=== PATIENT | female | born 1950 | race African-American/Black ===

== ENCOUNTER 2017-11-05 03:57 | Inpatient (IN) | payer MEDICARE, OTHER ==
[~2017-11-05] VITALS: Ht 177.8 cm; Wt 97.5 kg
[2017-11-05] VITALS (7 sets, daily range): BP systolic 115–155; BP diastolic 59–90
[2017-11-05] MEDS ORDERED: ATROVENT HFA12.9 GM IH (04:09)
[2017-11-05] MEDS ORDERED: ANASTROZOLE1 MG PO (04:11)
[2017-11-05] MEDS ORDERED: SYMBICORT 16010.2 G1 IH (04:12)
[2017-11-05] MEDS ORDERED: CARVEDILOL25 MG ORAL (04:12)
[2017-11-05] MEDS ORDERED: ASPIR 8181 MG ORAL (04:12)
[2017-11-05] MEDS ORDERED: COLACE100 MG ORAL (04:13)
[2017-11-05] MEDS ORDERED: CLOPIDOGREL75 MG ORAL (04:13)
[2017-11-05] MEDS ORDERED: CRANBERRY TABL1 EACH PO (04:14)
[2017-11-05] MEDS ORDERED: DULCOLAX10 MG RC (04:14)
[2017-11-05] MEDS ORDERED: FOLIC ACID1 MG ORAL (04:15)
[2017-11-05] MEDS ORDERED: FERROUS SULFAT325 MG ORAL (04:15)
[2017-11-05] MEDS ORDERED: FUROSEMIDE40 MG ORAL (04:15)
[2017-11-05] MEDS ORDERED: IMODIUM A-D2 M2 PO (04:16)
[2017-11-05] MEDS ORDERED: NEPHRO-VITE RX1 EAC1 PO (04:17)
[2017-11-05] MEDS ORDERED: LANTUS SOL100 UNIT/1 SUBQ (04:17)
[2017-11-05] MEDS ORDERED: MILK OF MA400 MG/51 ORAL (04:17)
[2017-11-05] MEDS ORDERED: CALCIUM ACETAT667 MG PO (04:19)
[2017-11-05] MEDS ORDERED: TRADJENTA5 MG PO (04:20)
[2017-11-05] MEDS ORDERED: ACETAMINOPHEN-1 EAC1 ORAL (04:21)
[2017-11-05] MEDS ORDERED: ACETAMINOPHEN325 M1 ORAL (04:21)
[2017-11-05] MEDS ORDERED: ULORIC80 MG ORAL (04:22)
[2017-11-05] MEDS ORDERED: VITAMIN D1000 UNI1 ORAL (04:22)
[2017-11-05] MEDS ORDERED: ZOFRAN4 M3 ORAL (04:23)
[2017-11-05] MEDS ORDERED: Albuterol ud Inhalation HHN ONE (04:30)
--- NOTE | 2017-11-05 04:31 | Emergency Room Report ---
History of Present Illness General Chief Complaint: Upper Respiratory Illness Source: Patient Present Illness HPI Patient was due for dialysis this morning she was getting ready when she started feeling extremely short of breath patient reports that she has been on antibiotics for the last week She has also had continued cough Patient complains of mild chest tightness denies any vomiting or diarrhea How she does have increased cough and congestion Patient is dialyzed Fridays denies any flank pain denies any recent travel Allergies: Uncoded Allergies: shell fish (Allergy, Intermediate, 11/05/17) Patient History Past Medical History: see triage record Pertinent Family History: none Reviewed Nursing Documentation: PMH: Agreed, PSxH: Agreed Nursing Documentation-PMH Hx Cardiac Problems: Yes Hx Hypertension: Yes Hx Asthma: Yes Hx COPD: Yes Hx Diabetes: Yes - 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 Hx Cancer: Yes Hx Gastrointestinal Problems: Yes - gerd Hx Dialysis: Yes - ESRD History Of Psychiatric Problem: Yes Review of Systems All Other Systems: negative except mentioned in HPI Physical Exam Vital Signs Date Time Temp Pulse Resp B/P (MAP) Pulse Ox O2 Delivery O2 Flow Rate FiO2 11/05/17 03:58 100 18 171/117 100 Nasal Cannula 3.0 Sp02 EP Interpretation: reviewed, normal General Appearance: mild distress - patient appears short of breath Head: normocephalic, atraumatic Eyes: bilateral eye PERRL, bilateral eye EOMI ENT: normal pharynx, no angioedema Neck: supple, thyroid normal Respiratory: crackles, wheezing Cardiovascular #1: regular rate, rhythm Gastrointestinal: non tender, soft Musculoskeletal: normal inspection Neurologic: alert, oriented x3, responsive Skin: other - mild edema laterally Medical Decision Making Diagnostic Impression: Primary Impression: Renal failure Additional Impression: Pleural effusion ER Course Patient is a fairly complex patient with multiple differential to consideration including but not limited to cardiac cardiopulmonary and vascular emergencies Upon arrival the patient was placed on BiPAP Patient has central dialysis catheter in the right upper chest AV shunt in left upper arm Difficult IV access At this time patient does not require other IV medication PICC line will be required to be ordered in the morning time However poor access other than dialysis catheter site X-ray revealing pleural effusion Patient has done significantly better and will require admission and nephrology along with dialysis care Labs Test 11/05/17 05:30 White Blood Count 3.8 K/UL (4.8-10.8) Red Blood Count 2.92 M/UL (4.20-5.40) Hemoglobin 9.2 G/DL (12.0-16.0) Hematocrit 29.6 % (37.0-47.0) Mean Corpuscular Volume 101 FL (80-99) Mean Corpuscular Hemoglobin 31.4 PG (27.0-31.0) Mean Corpuscular Hemoglobin Concent 30.9 G/DL (32.0-36.0) Red Cell Distribution Width 19.7 % (11.6-14.8) Platelet Count 162 K/UL (150-450) Mean Platelet Volume 5.5 FL (6.5-10.1) Neutrophils (%) (Auto) 83.9 % (45.0-75.0) Lymphocytes (%) (Auto) 6.2 % (20.0-45.0) Monocytes (%) (Auto) 6.9 % (1.0-10.0) Eosinophils (%) (Auto) 1.9 % (0.0-3.0) Basophils (%) (Auto) 1.0 % (0.0-2.0) Sodium Level 140 MMOL/L (136-145) Potassium Level 4.5 MMOL/L (3.5-5.1) Chloride Level 104 MMOL/L (98-107) Carbon Dioxide Level 27 MMOL/L (21-32) Anion Gap 10 mmol/L (5-15) Blood Urea Nitrogen 71 mg/dL (7-18) Creatinine 8.0 MG/DL (0.55-1.30) Estimat Glomerular Filtration Rate 6.1 mL/min (>60) Glucose Level 123 MG/DL (74-106) Calcium Level 9.2 MG/DL (8.5-10.1) Total Bilirubin 0.3 MG/DL (0.2-1.0) Aspartate Amino Transf (AST/SGOT) 14 U/L (15-37) Alanine Aminotransferase (ALT/SGPT) 20 U/L (12-78) Alkaline Phosphatase 89 U/L (46-116) Total Creatine Kinase 64 U/L (26-308) Creatine Kinase MB 2.1 NG/ML (0.0-3.6) Creatine Kinase MB Relative Index 3.2 Troponin I 0.058 ng/mL (0.000-0.056) Pro-B-Type Natriuretic Peptide 83328 pg/mL (0-125) Total Protein 7.5 G/DL (6.4-8.2) Albumin 3.1 G/DL (3.4-5.0) Globulin 4.4 g/dL Albumin/Globulin Ratio 0.7 (1.0-2.7) Lipase 95 U/L (73-393) Rhythm Strip Diag. Results EP Interpretation: yes Rate: 77 Rhythm: NSR, no PVC's, no ectopy Chest X-Ray Diagnostic Results Chest X-Ray Diagnostic Results : Chest X-Ray Ordered: Yes # of Views/Limited/Complete: 1 View Indication: Chest Pain EP Interpretation: Yes Interpretation: no pneumothorax, other - Patient has bilateral atelectasis appearance of, extensive left-sided effusion no obvious acute bony abnormalities Impression: Other - Large effusion Last Vital Signs Date Time Temp Pulse Resp B/P (MAP) Pulse Ox O2 Delivery O2 Flow Rate FiO2 11/05/17 03:58 100 18 171/117 100 Nasal Cannula 3.0 Status: improved Disposition: ADMITTED INPATIENT Condition: Serious Referrals: CHARLI STAPLETON (PCP) NESSA MESA D.O. Nov 05, 2017 04:30
[2017-11-05 05:37] LABS: EOSINOPHILS % (AUTO) 1.9 % (0.0-3.0); LYMPHOCYTES % (AUTO) 6.2 % (20.0-45.0); MEAN CORPUSCULAR HEMOGLOBIN 31.4 PG (27.0-31.0); MEAN CORPUSCULAR HGB CONC 30.9 G/DL (32.0-36.0); MEAN CORPUSCULAR VOLUME 101 FL (80-99); MEAN PLATELET VOLUME 5.5 FL (6.5-10.1); MONOCYTES % (AUTO) 6.9 % (1.0-10.0); NEUTROPHILS % (AUTO) 83.9 % (45.0-75.0); PLATELET COUNT 162 K/UL (150-450); RED BLOOD COUNT 2.92 M/UL (4.20-5.40); RED CELL DISTRIBUTION WIDTH 19.7 % (11.6-14.8); WHITE BLOOD COUNT 3.8 K/UL (4.8-10.8)
[2017-11-05 05:48] LABS: ANION GAP 10 mmol/L (5-15); CALCIUM 9.2 MG/DL (8.5-10.1); CARBON DIOXIDE 27 MMOL/L (21-32); CHLORIDE 104 MMOL/L (98-107); GLOMERULAR FILTRATION RATE 6.1 mL/min (>60); POTASSIUM 4.5 MMOL/L (3.5-5.1); SODIUM 140 MMOL/L (136-145)
[2017-11-05 06:20] LABS: ALANINE AMINOTRANSFERASE 20 U/L (12-78); ALBUMIN/GLOBULIN RATIO 0.7 (1.0-2.7); ASPARTATE AMINO TRANSFERASE 14 U/L (15-37); CKMB 2.1 NG/ML (0.0-3.6); LIPASE 95 U/L (73-393); TOTAL PROTEIN 7.5 G/DL (6.4-8.2)
[2017-11-05] MEDS ORDERED: Tylenol #3 tab (300mg/30mg) ORAL PRN (07:30)
[2017-11-05] MEDS ORDERED: Loperamide 2mg cap ORAL PRN (07:30)
[2017-11-05] MEDS: Milk of Magnesia 30ml Ud ORAL SCH (09:00)
[2017-11-05] MEDS: Docusate 100mg cap ORAL SCH (09:00)
[2017-11-05] MEDS ORDERED: cefTRIAXone 1 GM in D5W 55 ML IVPB SCH (09:00)
[2017-11-05] MEDS ORDERED: Aspirin EC 81mg tab ORAL SCH (09:00)
[2017-11-05] MEDS ORDERED: Heparin 5000 units/ml inj SUBQ SCH (09:00)
[2017-11-05] MEDS: Anastrazole 1mg tab ORAL SCH (10:00)
[2017-11-05] MEDS: Carvedilol 25mg Tab ORAL SCH ×2 (10:00→21:17)
[2017-11-05] MEDS ORDERED: Vancomycin 1750mg/D5W 300ml IVPB ONE ×2 (10:00)
[2017-11-05] MEDS: Vitamin D 1000 IU Tab ORAL SCH (10:01)
[2017-11-05] MEDS: NovoLOG Insulin Flexpen SUBQ SCH ×3 (11:30→21:00)
--- NOTE | 2017-11-05 11:37 | Diagnostic Imaging Report ---
Indication: Reason For Exam: SOB Technique: One view of the chest Comparison: none Findings: Right chest tunneled dialysis catheter is noted. There is a left chest automated defibrillator with a lead that is presumably an epicardial lead. There is a large left pleural effusion and a small right pleural effusion. There is mild interstitial congestion. The heart is borderline enlarged Impression: Borderline cardiomegaly Large left and small right pleural effusions Interstitial congestion
[2017-11-05] MEDS ORDERED: Heparin 2000 units/Ns 1000ml INJ PRN (13:00)
[2017-11-05] MEDS ORDERED: Lidocaine 1% Plain 30 ml INJ PRN (13:00)
[2017-11-05 15:24] LABS: PARTIAL THROMBOPLASTIN TIME 52 SEC (23-33)
[2017-11-05] MEDS ORDERED: Heparin Sod 1000 units/ml 10ml IV PRN (16:30)
[2017-11-05] MEDS ORDERED: Heparin 5000 units/ml inj INJ PRN (17:00)
--- NOTE | 2017-11-05 17:08 | Diagnostic Imaging Report ---
Indications: Pleural effusion Technique: Ultrasound used to localize optimal puncture site. Sterile prepping and draping left chest. Local anesthesia with 1% lidocaine. Under real-time ultrasound guidance, puncture pleural space using thoracentesis needle. Stylet removed. Catheter placed to vacuum bottle suction. Total 700 milliliters of fluid aspirated. Patient tolerated procedure well, without immediate complication. Findings: Followup sonography demonstrates complete resolution of pleural fluid. Impression: Successful ultrasound-guided thoracentesis, yielding 700 milliliters of fluid
--- NOTE | 2017-11-05 17:09 | Diagnostic Imaging Report ---
Indication: Post thoracentesis Technique: One view of the chest Comparison: 11/05/2017 Findings: Interim improvement of previously demonstrated left pleural effusion, post thoracentesis. No pneumothorax. Interstitial congestion, small right pleural effusion persists. Impression: Decreased left pleural effusion, status post thoracentesis. No radiographic evidence complication Other stable findings as described
[2017-11-05] MEDS: Lidocaine 1% MPF 10mg/ml 5ml IM SCH (17:54)
--- NOTE | 2017-11-05 18:45 | History and Physical Report ---
DATE OF ADMISSION: 11/05/2017 CHIEF COMPLAINT: Shortness of breath and respiratory failure. HISTORY OF PRESENT ILLNESS: The patient is a 66-year-old female. She has a history of end-stage renal disease. She has been on hemodialysis now for almost two years. She has a history of hypertension, diabetes, and congestive heart failure. She presented from a [facility] facility with complaints of worsening shortness of breath over the last three days. According to the patient, she has had worsening shortness of breath for a week or two. She denies any medication or dietary noncompliance. On the day of transfer here, the patient was hypoxic. On evaluation in the emergency room, the patient was placed on BiPAP because of hypoxemia and shortness of breath. X-ray showed evidence of congestive heart failure with a large effusion. The patient has been started on supplemental oxygen, antibiotics, and breathing treatments. She is now admitted for further evaluation and care. PAST MEDICAL HISTORY: As above. PAST SURGICAL HISTORY: Includes a history of an AV fistula. CURRENT MEDICATIONS: Reconciled and reviewed. ALLERGIES: Include shellfish. FAMILY HISTORY: Noncontributory. SOCIAL HISTORY: Negative for tobacco, ethanol, or drugs. REVIEW OF SYSTEMS: GENERAL: No fever or chills. HEENT: No headaches or visual changes. CARDIOPULMONARY: Positive shortness of breath. No chest pain. Mild nonproductive cough. GASTROINTESTINAL: No nausea or vomiting. GENITOURINARY: No urgency or frequency. MUSCULOSKELETAL: No joint pain or swelling. No evidence of seizures. PHYSICAL EXAMINATION: VITAL SIGNS: Temperature 98 degrees, blood pressure 115/90, pulse 95, and respirations 22. GENERAL: The patient is a well-developed female, in no apparent distress. She is awake, alert, and oriented x4. HEENT: Pupils are equal, round, and reactive to light. Oropharynx clear. Mucous membranes are moist. NECK: Supple. HEART: Regular rate and rhythm. LUNGS: Few scattered wheezes. ABDOMEN: Soft, nontender, and nondistended. EXTREMITIES: Without clubbing or cyanosis. There is 1+ pitting edema. LABORATORY DATA: White count was 4, hemoglobin 9, hematocrit 29, and platelet count of 162,000. Sodium is 140, creatinine was 8, potassium 4.5, and bicarbonate 27. Natriuretic peptide level was 10,000. Troponin 0.058. Chest x-ray showed cardiomegaly, large left and small right pleural effusions, and interstitial congestion. ASSESSMENT: This is a pleasant female with multiple medical problems admitted with complaints of shortness of breath secondary to congestive heart failure exacerbation. 1. Congestive heart failure exacerbation. 2. Possible pneumonia. 3. Pleural effusion. 4. Respiratory failure. 5. Diabetes. 6. Hypertension. 7. History of congestive heart failure. 8. Elevated troponin, rule out acute coronary syndrome. PLAN: 1. Admit to monitored bed. 2. Continue BiPAP. 3. Renal consultation for hemodialysis. 4. Empiric antibiotic therapy to cover for pneumonia. 5. Consider thoracentesis if shortness of breath does not improve with ultrafiltration. 6. We will continue the outpatient cardiac and diabetic regimen. Yosvany Gooden M.D. DR: LEONID JOB#: [id number] CC:
[2017-11-05 19:08] LABS: INR > 10.0 (0.9-1.1); PROTHROMBIN TIME > 100.0 SEC (9.30-11.50)
[2017-11-05] MEDS ORDERED: Dyna-Hex 2% Top Sol 2oz TOPIC SCH (20:00)
[2017-11-05] MEDS: Dyna-Hex 2% Top Sol 2oz TOPIC SCH (21:17)
[2017-11-05] MEDS: Epogen (for ESRD on dialysis) SUBQ SCH (21:18)
--- NOTE | 2017-11-05 22:00 | Consultation ---
DATE OF CONSULTATION: 11/05/2017 PULMONARY CONSULTATION REASON FOR CONSULTATION: Respiratory failure. HISTORY OF PRESENT ILLNESS: This is a 66-year-old female, who resides in a [facility] facility. The patient presented due to worsening shortness of breath. The patient apparently had been on antibiotics, but continued to cough with some congestion. The patient with mild chest tightness. The patient apparently gets dialyzed Wednesday, Wednesday, and Wednesday and has been compliant. She is admitted for increased cough, congestion, and respiratory distress. X-rays notable for bilateral pleural effusion, which is large on the left. The patient's care discussed and reviewed in detail and the patient initially placed on BiPAP as mentioned. The patient appeared to be doing well, now off the BiPAP, still with some congestion noted on evaluation. The patient's care discussed and reviewed and the findings were all discussed. The patient does have history of an overload and other events noted and reviewed. Evaluation of the medical records was done in detail. PAST MEDICAL HISTORY: Notable for history of end-stage renal disease, COPD, asthma, hypertension, history of cardiac disease, and history of gastrointestinal problems. MEDICATIONS: Reviewed. ALLERGIES: Reviewed. SOCIAL HISTORY: The patient resides in a [facility]. She does not smoke or drink. REVIEW OF SYSTEMS: All noted and reviewed. Difficult to fully assess. The patient has chronic edema, chronic debility, poor mobility overall, arthritis, and noted end-stage renal disease. PHYSICAL EXAMINATION: GENERAL: A well-developed female, appears to be mildly short of breath, although appears to be better now. VITAL SIGNS: Temperature 97, heart rate 85, respirations 22, blood pressure 126/77, and sats 98%. Currently, on 30% FiO2. HEENT: Otherwise negative. Sclerae mildly injected. Oropharynx is otherwise moist. NECK: Supple. No adenopathy. LUNGS: Lungs with significantly reduced breath sounds, especially in the left lung with some reduction in the right. CARDIAC: S1 and S2. Regular rate and rhythm. Slightly distant. Noted systolic murmur. ABDOMEN: Soft, nontender, and nondistended. EXTREMITIES: No cyanosis or clubbing. Noted edema. NEUROLOGICAL: Grossly nonfocal, but weak. LABORATORY AND DIAGNOSTIC DATA: All reviewed. BUN 31 and creatinine . Troponin 0.058. BNP 10,987. CBC, white count of 3.8, hemoglobin 9.2, and platelets of 162. IMPRESSION: 1. Pleural effusion bilaterally, likely fluid overload. 2. Chronic obstructive pulmonary disease/asthma per history. 3. End-stage renal disease. 4. History of hypertension. RECOMMENDATION: Proceed with thoracentesis tap. Resume medications from home. Nebulized therapy. Hemodialysis with ultrafiltration. Monitor platelets and recommend . Pending further improvement, we will discharge the patient back to [facility]. Ngerito Suarez M.D. DR: Brigette JOB#: [id number] CC:
[2017-11-06] VITALS: BP_SYST 123; BP_SYST 131; BP_DIAS 56; BP_DIAS 89
[2017-11-06] MEDS: Albuterol/Ipratropium 3ml neb HHN PRN ×3 (00:38→13:59)
[2017-11-06 04:00] VITALS: BP 101/60
[2017-11-06 05:18] LABS: INR 1.1 (0.9-1.1); PROTHROMBIN TIME 11.4 SEC (9.30-11.50)
[2017-11-06 05:24] LABS: CHOLESTEROL 134 MG/DL (< 200); CHOLESTEROL/HDL RATIO 2.2 (3.3-4.4)
[2017-11-06] MEDS: NovoLOG Insulin Flexpen SUBQ SCH ×4 (06:27→21:46)
[2017-11-06 08:00] VITALS: BP 103/61
[2017-11-06] MEDS: Vitamin D 1000 IU Tab ORAL SCH (08:58)
[2017-11-06] MEDS: Carvedilol 25mg Tab ORAL SCH ×2 (08:58→21:43)
[2017-11-06] MEDS: Milk of Magnesia 30ml Ud ORAL SCH (08:58)
[2017-11-06] MEDS: Anastrazole 1mg tab ORAL SCH (08:58)
[2017-11-06] MEDS: Docusate 100mg cap ORAL SCH (08:59)
--- NOTE | 2017-11-06 09:38 | General Progress Note ---
Assessment/Plan Problem List: (1) Pleural effusion ICD Codes: J90 - Pleural effusion, not elsewhere classified SNOMED: 60759871 (2) Renal failure ICD Codes: N19 - Unspecified kidney failure SNOMED: 00643205 Status: stable, progressing Assessment/Plan cont resp care bipap prn HD per renal cough rx dc planning wednesday if continued improvement Subjective ROS Limited/Unobtainable: No Constitutional: Reports: malaise, weakness HEENT: Reports: no symptoms Cardiovascular: Reports: no symptoms Respiratory: Reports: cough, shortness of breath Gastrointestinal/Abdominal: Reports: no symptoms Genitourinary: Reports: no symptoms Neurologic/Psychiatric: Reports: no symptoms Endocrine: Reports: no symptoms Hematologic/Lymphatic: Reports: no symptoms Allergies: Uncoded Allergies: shell fish (Allergy, Intermediate, 11/05/17) All Systems: reviewed and negative except above Subjective s/p hd. s/p 700cc thoracentesis. c/o cough, sob improved but still required bipap last night Objective Last 24 Hour Vital Signs Date Time Temp Pulse Resp B/P (MAP) Pulse Ox O2 Delivery O2 Flow Rate FiO2 11/06/17 08:58 87 103/61 11/06/17 08:00 98.5 87 20 103/61 95 Venturi Mask 40 11/06/17 06:56 Venturi Mask 8.0 40 11/06/17 06:56 96 Venturi Mask 8.0 40 11/06/17 06:56 84 22 Venturi Mask 8.0 40 11/06/17 05:48 Venturi Mask 8.0 40 11/06/17 05:46 81 18 97 Venturi Mask 8.0 40 11/06/17 05:40 81 18 96 Venturi Mask 4.0 30 11/06/17 04:00 82 11/06/17 04:00 98.6 83 20 101/60 99 Venturi Mask 11/06/17 04:00 40 11/06/17 02:51 Simple Mask 11/06/17 02:10 40 11/06/17 02:07 80 24 96 Facial 40 11/06/17 00:51 78 20 96 Venturi Mask 8.0 40 11/06/17 00:37 75 20 92 Venturi Mask 4.0 30 11/06/17 00:05 Nasal Cannula 2.0 11/06/17 00:00 80 11/06/17 00:00 98.9 79 20 123/56 99 Venturi Mask 11/05/17 21:17 89 117/72 11/05/17 20:00 98.6 89 20 117/72 98 Venturi Mask 30 11/05/17 19:46 97 11/05/17 16:00 79 11/05/17 16:00 98.1 89 22 129/59 100 Venturi Mask 30 11/05/17 12:32 82 11/05/17 12:00 97.8 85 22 126/77 98 Venturi Mask 30 11/05/17 10:00 99 155/90 Laboratory Tests 11/05/17 15:00: Prothrombin Time > 100.0H, Prothromb Time International Ratio > 10.0*H, Activated Partial Thromboplast Time 52H 11/06/17 03:45: Prothrombin Time 11.4, Prothromb Time International Ratio 1.1, Troponin I 0.073H , Triglycerides Level 45, Cholesterol Level 134, LDL Cholesterol 66, HDL Cholesterol 61H, Cholesterol/HDL Ratio 2.2L, Hepatitis A IgM Antibody [Pending] , Hepatitis B Surface Antigen [Pending], Hepatitis B Core IgM Antibody [Pending] , Hepatitis C Antibody [Pending] Height (Feet): 5 Height (Inches): 10.00 Weight (Pounds): 206 General Appearance: WD/WN, alert Neck: supple Cardiovascular: normal rate, regular rhythm Respiratory/Chest: chest wall non-tender, lungs clear, normal breath sounds Abdomen: normal bowel sounds, non tender, soft, no organomegaly Edema: mild edema 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
[2017-11-06] MEDS: Furosemide 40mg tab ORAL SCH ×2 (11:06→18:26)
[2017-11-06 12:00] VITALS: BP 105/61
[2017-11-06 16:00] VITALS: BP 122/69
[2017-11-06] MEDS: Lidocaine 1% MPF 10mg/ml 5ml IM SCH (18:27)
[2017-11-06] MEDS: Albuterol/Ipratropium 3ml neb HHN SCH ×2 (19:39→23:09)
[2017-11-06 20:00] VITALS: BP 108/60
--- NOTE | 2017-11-06 21:30 | Consultation ---
DATE OF CONSULTATION: 11/06/2017 RENAL CONSULTATION CONSULTING PHYSICIAN: Yani Mercedes M.D. REFERRING PHYSICIAN: Negrito Suarez M.D. REASON FOR CONSULTATION: ESRD, on hemodialysis. HISTORY OF PRESENT ILLNESS: This is a 66-year-old lady with a history of ESRD, on hemodialysis; hypertension; and diabetes. The patient was sent from the group home because of the respiratory failure and shortness of breath, and the patient is a poor historian and I could not get any detailed history. The patient is on the BiPAP, and the patient got dialysis yesterday with UF of 1.7, and the patient is still on a BiPAP, and the patient also had left-sided thoracocentesis yesterday with 700 mL of yellowish fluid was removed, and no fever and no nausea or vomiting. PAST MEDICAL HISTORY: 1. ESRD, on hemodialysis. 2. Anemia of CKD. 3. Hypertension. 4. Diabetes. 5. CHF. 6. History of CA of the breast. 7. GERD. 8. Major depression disorder. 9. Gout. 10. Ischemic cardiomyopathy with systolic and diastolic. ALLERGIES: Shellfish. MEDICATIONS: Reviewed. FAMILY HISTORY: Noncontributory. SOCIAL HISTORY: Resides in the group home. No current smoking, alcohol, or drug use. REVIEW OF SYSTEMS: Could not be obtained as the patient is on the BiPAP. PHYSICAL EXAMINATION: VITAL SIGNS: Blood pressure of 102/50 and a heart rate of 87, respiratory rate , and temperature is 98.5, and oxygen saturation is 95% on the BiPAP. GENERAL: On examination, the patient is on the BiPAP, alert and awake. HEENT: Atraumatic and normocephalic. NECK: Supple. Trachea is in the midline. LUNGS: Reduced breath sounds in the left chest. HEART: S1 and S2. Regular rate and rhythm. No murmur or gallop. ABDOMEN: Soft, nontender. Bowel sounds present. EXTREMITIES: No edema. Left AV fistula present. LABORATORY AND DIAGNOSTIC DATA: Sodium 140, potassium 4.5, chloride 104, bicarb 27, BUN 71, creatinine is 8.0, and calcium is 9.2. Troponin is 0.058, went up to 0.073 and her BNP is 10,000. Albumin is 3.1. Lipase is 85. The chest x-ray showed decreased left pleural effusion, status post thoracocentesis. ASSESSMENT: 1. End-stage renal disease, on hemodialysis. 2. Anemia of chronic kidney disease. 3. Left pleural effusion, status post thoracocentesis. 4. Hypertension. 5. Diabetes. 6. History of carcinoma of the breast. 7. Systolic and diastolic congestive heart failure. PLAN: 1. We are going to dialyze the patient again on Wednesday. 2. Start Epogen. 3. Respiratory care per Pulmonary. Thank you for the consultation and we will follow up. Yani Anuradha Mercedes M.D. DR: TAIWO JOB#: [id number] CC:
[2017-11-06] MEDS: Dyna-Hex 2% Top Sol 2oz TOPIC SCH (21:43)
[2017-11-06] MEDS: Heparin 5000 units/ml inj SUBQ SCH (21:45)
[2017-11-07] VITALS: BP 110/66
[2017-11-07] MEDS: Albuterol/Ipratropium 3ml neb HHN SCH ×6 (02:17→23:40)
[2017-11-07 04:00] VITALS: BP 115/86
[2017-11-07 04:41] LABS: MEAN CORPUSCULAR HEMOGLOBIN 32.6 PG (27.0-31.0); MEAN CORPUSCULAR HGB CONC 31.4 G/DL (32.0-36.0); MEAN CORPUSCULAR VOLUME 104 FL (80-99); MEAN PLATELET VOLUME 5.6 FL (6.5-10.1); PLATELET COUNT 135 K/UL (150-450); RED BLOOD COUNT 2.64 M/UL (4.20-5.40); RED CELL DISTRIBUTION WIDTH 19.9 % (11.6-14.8); WHITE BLOOD COUNT 2.9 K/UL (4.8-10.8)
[2017-11-07 05:07] LABS: IRON 24 ug/dL (50-175)
[2017-11-07 05:12] LABS: BAND NEUTROPHILS % (MANUAL) 0 % (0-8); BASOPHILS % (MANUAL) 0 % (0-2); EOSINOPHILS % (MANUAL) 3 % (0-3); LYMPHOCYTES % (MANUAL) 12 % (20-45); NEUTROPHILS % (MANUAL) 75 % (45-75); PLATELET ESTIMATE DECREASED; PLATELET MORPHOLOGY NORMAL; TOTAL CELLS COUNTED 100
[2017-11-07 05:16] LABS: ANION GAP 9 mmol/L (5-15); CALCIUM 8.7 MG/DL (8.5-10.1); CARBON DIOXIDE 26 MMOL/L (21-32); CHLORIDE 104 MMOL/L (98-107); CREATININE 8.2 MG/DL (0.55-1.30); FERRITIN 859 NG/ML (8-388); GLOMERULAR FILTRATION RATE 5.9 mL/min (>60); POTASSIUM 4.9 MMOL/L (3.5-5.1); SODIUM 139 MMOL/L (136-145)
[2017-11-07] MEDS: NovoLOG Insulin Flexpen SUBQ SCH ×4 (06:30→20:19)
[2017-11-07 08:00] VITALS: BP 113/63
[2017-11-07] MEDS: Heparin 5000 units/ml inj SUBQ SCH ×2 (09:00→20:24)
[2017-11-07] MEDS: Milk of Magnesia 30ml Ud ORAL SCH ×2 (09:00→09:27)
--- NOTE | 2017-11-07 09:09 | General Progress Note ---
Assessment/Plan Problem List: (1) Pleural effusion ICD Codes: J90 - Pleural effusion, not elsewhere classified SNOMED: 66345048 (2) Renal failure ICD Codes: N19 - Unspecified kidney failure SNOMED: 35605691 Status: stable, progressing Assessment/Plan cont resp care bipap prn wean venti mask check abg HD per renal cough rx dc planning wednesday if continued improvement Subjective ROS Limited/Unobtainable: No Constitutional: Reports: malaise, weakness HEENT: Reports: no symptoms Cardiovascular: Reports: no symptoms Respiratory: Reports: cough, shortness of breath Gastrointestinal/Abdominal: Reports: no symptoms Genitourinary: Reports: no symptoms Neurologic/Psychiatric: Reports: no symptoms Endocrine: Reports: no symptoms Hematologic/Lymphatic: Reports: anemia Allergies: Coded Allergies: SHELLFISH DERIVED (Unverified Allergy, Intermediate, 11/06/17) COPIED FROM UNCODED SECTION All Systems: reviewed and negative except above Subjective s/p hd. s/p 700cc thoracentesis. c/o cough, sob improved but still on venti mask. Objective Last 24 Hour Vital Signs Date Time Temp Pulse Resp B/P (MAP) Pulse Ox O2 Delivery O2 Flow Rate FiO2 11/07/17 08:57 96 20 99 Venturi Mask 10.0 45 11/07/17 08:53 96 20 99 Venturi Mask 10.0 45 11/07/17 07:41 92 20 100 Venturi Mask 10.0 45 11/07/17 07:34 91 20 99 Venturi Mask 10.0 45 11/07/17 07:34 99 Venturi Mask 10.0 45 11/07/17 07:34 Venturi Mask 10.0 45 11/07/17 04:00 98.0 88 22 115/86 99 Venturi Mask 40 11/07/17 03:37 81 11/07/17 02:18 98 20 96 Venturi Mask 8.0 40 11/07/17 02:17 93 20 94 Venturi Mask 8.0 40 11/07/17 00:00 94 11/07/17 00:00 98.9 84 22 110/66 100 Venturi Mask 40 11/06/17 23:11 94 20 98 Venturi Mask 8.0 40 11/06/17 23:09 88 20 95 Venturi Mask 8.0 40 11/06/17 21:43 83 108/60 11/06/17 20:00 97.7 83 22 108/60 95 Venturi Mask 40 11/06/17 19:42 Venturi Mask 6.0 35 11/06/17 19:42 82 20 99 Venturi Mask 6.0 35 11/06/17 19:42 93 11/06/17 19:41 97 Venturi Mask 6.0 35 11/06/17 19:39 90 20 97 Venturi Mask 6.0 35 11/06/17 16:00 98.3 98 16 122/69 100 Venturi Mask 40 11/06/17 16:00 75 11/06/17 14:10 83 22 96 Venturi Mask 8.0 40 11/06/17 13:59 82 24 98 Venturi Mask 8.0 40 11/06/17 12:12 88 20 95 Venturi Mask 8.0 40 11/06/17 12:12 88 20 95 Venturi Mask 8.0 40 11/06/17 12:00 99.3 85 20 105/61 98 Venturi Mask 40 11/06/17 12:00 98 Laboratory Tests 11/07/17 03:55: White Blood Count 2.9L, Red Blood Count 2.64L, Hemoglobin 8.6L, Hematocrit 27.4L , Mean Corpuscular Volume 104H, Mean Corpuscular Hemoglobin 32.6H, Mean Corpuscular Hemoglobin Concent 31.4L, Red Cell Distribution Width 19.9H, Platelet Count 135L, Mean Platelet Volume 5.6L, Neutrophils (%) (Auto) , Lymphocytes (%) (Auto) , Monocytes (%) (Auto) , Eosinophils (%) (Auto) , Basophils (%) (Auto) , Differential Total Cells Counted 100, Neutrophils % ( Manual) 75, Lymphocytes % (Manual) 12L, Monocytes % (Manual) 10, Eosinophils % ( Manual) 3, Basophils % (Manual) 0, Band Neutrophils 0, Platelet Estimate DecreasedL, Platelet Morphology Normal, Sodium Level 139, Potassium Level 4.9, Chloride Level 104, Carbon Dioxide Level 26, Anion Gap 9, Blood Urea Nitrogen 76H, Creatinine 8.2H, Estimat Glomerular Filtration Rate 5.9, Glucose Level 122H , Calcium Level 8.7, Iron Level 24L, Ferritin 859H Height (Feet): 5 Height (Inches): 10.00 Weight (Pounds): 204 Objective General Appearance: WD/WN, alert Neck: supple Cardiovascular: normal rate, regular rhythm Respiratory/Chest: chest wall non-tender, lungs clear, normal breath sounds Abdomen: normal bowel sounds, non tender, soft, no organomegaly Edema: mild edema 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
[2017-11-07] MEDS: Aspirin EC 81mg tab ORAL SCH (09:25)
[2017-11-07] MEDS: Furosemide 40mg tab ORAL SCH ×2 (09:25→17:52)
[2017-11-07] MEDS: Vitamin D 1000 IU Tab ORAL SCH (09:25)
[2017-11-07] MEDS: Docusate 100mg cap ORAL SCH (09:26)
[2017-11-07] MEDS: Carvedilol 25mg Tab ORAL SCH ×2 (09:27→20:21)
[2017-11-07] MEDS: Anastrazole 1mg tab ORAL SCH (09:28)
[2017-11-07 10:44] LABS: ABG ALLEN TEST POSITIVE; ABG BASE EXCESS -0.9; ABG PCO2 37.5 mmHg (35.0-45.0)
[2017-11-07 12:00] VITALS: BP 100/57
--- NOTE | 2017-11-07 13:07 | Cardiology Report ---
APPROVED REPORT EXAM: Two-dimensional and M-mode echocardiogram with Doppler and color Doppler. INDICATION Acute myocard infarction M-Mode DIMENSIONS IVSd1.7 (0.7-1.1cm)Left Atrium (MM)5.5 (1.6-4.0cm) LVDd5.3 (3.5-5.6cm)Aortic Root2.9 (2.0-3.7cm) PWd1.3 (0.7-1.1cm)Aortic Cusp Exc.1.5 (1.5-2.0cm) LVDs4.3 (2.5-4.0cm) PWs1.3 cm Technically difficult study due to poor acoustical windows. Study quality precludes accurate assessment of regional wall motion. Mild left ventricular enlargement by 2D. Global left ventricular hypokinesis. Left ventricular ejection fraction estimated to be 40%. Moderate left ventricular hypertrophy. Moderate pleural effusion. Mild left atrial enlargement. Right cardiac chamber sizes are within normal limits. Focal aortic valve sclerosis with adequate cusp excursion. Thickened mitral valve leaflets with normal excursion. Mitral annulus and aortic root calcification. Pulmonic valve not well visualized. Normal tricuspid valve structure. IVC dilated at 2.2 cm with physiologic collapse suggestive of increased RA pressure. A color flow and spectral Doppler study was performed and revealed: No aortic regurgitation. Moderate mitral regurgitation. Mitral diastolic velocities suggest mild left ventricular dysfunction (Grade I ). Trace tricuspid regurgitation. Tricuspid systolic velocities suggests peak right ventricular systolic pressure of 21 mmHg. Trace pulmonic regurgitation present.
--- NOTE | 2017-11-07 14:08 | Nephrology Progress Note ---
Assessment/Plan Plan 1. End-stage renal disease, on hemodialysis. 2. Anemia of chronic kidney disease. 3. Left pleural effusion, status post thoracocentesis. 4. Hypertension. 5. Diabetes. 6. History of carcinoma of the breast. 7. Systolic and diastolic congestive heart failure. PLAN: 1. HD tomorrow 2. continue EPogen chjeck iron, ferritin 3. Respiratory care per Pulmonary. Subjective Subjective mild SOb last nigth and SaO2 is ok. Denies any c/o Objective Objective Last 24 Hour Vital Signs Date Time Temp Pulse Resp B/P (MAP) Pulse Ox O2 Delivery O2 Flow Rate FiO2 11/07/17 12:00 97.5 91 18 100/57 97 Venturi Mask 40 11/07/17 12:00 97 11/07/17 11:14 91 20 93 Nasal Cannula 2.0 28 11/07/17 11:03 91 20 93 Nasal Cannula 2.0 28 11/07/17 09:27 96 115/86 11/07/17 08:57 96 20 99 Venturi Mask 10.0 45 11/07/17 08:53 96 20 99 Venturi Mask 10.0 45 11/07/17 08:00 93 11/07/17 08:00 98.1 98 18 113/63 99 Venturi Mask 40 11/07/17 07:41 92 20 100 Venturi Mask 10.0 45 11/07/17 07:34 91 20 99 Venturi Mask 10.0 45 11/07/17 07:34 99 Venturi Mask 10.0 45 11/07/17 07:34 Venturi Mask 10.0 45 11/07/17 04:00 98.0 88 22 115/86 99 Venturi Mask 40 11/07/17 03:37 81 11/07/17 02:18 98 20 96 Venturi Mask 8.0 40 11/07/17 02:17 93 20 94 Venturi Mask 8.0 40 11/07/17 00:00 94 11/07/17 00:00 98.9 84 22 110/66 100 Venturi Mask 40 11/06/17 23:11 94 20 98 Venturi Mask 8.0 40 11/06/17 23:09 88 20 95 Venturi Mask 8.0 40 11/06/17 21:43 83 108/60 11/06/17 20:00 97.7 83 22 108/60 95 Venturi Mask 40 11/06/17 19:42 Venturi Mask 6.0 35 11/06/17 19:42 82 20 99 Venturi Mask 6.0 35 11/06/17 19:42 93 11/06/17 19:41 97 Venturi Mask 6.0 35 11/06/17 19:39 90 20 97 Venturi Mask 6.0 35 11/06/17 16:00 98.3 98 16 122/69 100 Venturi Mask 40 11/06/17 16:00 75 11/06/17 14:10 83 22 96 Venturi Mask 8.0 40 Intake and Output 11/07/17 11/08/17 19:00 07:00 Intake Total 100 ml Balance 100 ml Intake Oral 100 ml # Bowel Movements 2 Laboratory Tests 11/07/17 03:55: White Blood Count 2.9L, Red Blood Count 2.64L, Hemoglobin 8.6L, Hematocrit 27.4L , Mean Corpuscular Volume 104H, Mean Corpuscular Hemoglobin 32.6H, Mean Corpuscular Hemoglobin Concent 31.4L, Red Cell Distribution Width 19.9H, Platelet Count 135L, Mean Platelet Volume 5.6L, Neutrophils (%) (Auto) , Lymphocytes (%) (Auto) , Monocytes (%) (Auto) , Eosinophils (%) (Auto) , Basophils (%) (Auto) , Differential Total Cells Counted 100, Neutrophils % ( Manual) 75, Lymphocytes % (Manual) 12L, Monocytes % (Manual) 10, Eosinophils % ( Manual) 3, Basophils % (Manual) 0, Band Neutrophils 0, Platelet Estimate DecreasedL, Platelet Morphology Normal, Sodium Level 139, Potassium Level 4.9, Chloride Level 104, Carbon Dioxide Level 26, Anion Gap 9, Blood Urea Nitrogen 76H, Creatinine 8.2H, Estimat Glomerular Filtration Rate 5.9, Glucose Level 122H , Calcium Level 8.7, Iron Level 24L, Ferritin 859H 11/07/17 10:30: Arterial Blood pH 7.410, Arterial Blood Partial Pressure CO2 37.5, Arterial Blood Partial Pressure O2 85.9, Arterial Blood HCO3 23.5, Arterial Blood Oxygen Saturation 95.7, Arterial Blood Base Excess -0.9, Truman Test Positive Height (Feet): 5 Height (Inches): 10.00 Weight (Pounds): 204 Objective NAD, AAOx3 mild bilat basilar crackles+ S1,S2,RRR soft, non tender, BS+ no edema, LAVF+ CEVALLOS,VILMA Nov 07, 2017 14:08
--- NOTE | 2017-11-07 14:12 | Cardiology Report ---
APPROVED REPORT EKG Measurement Heart [id number] Sinus rhythm with occasional premature ventricular complexes Rightward axis Anteroseptal infarct, age undetermined Abnormal ECG
[2017-11-07 14:37] LABS: IRON 26 ug/dL (50-175); TOTAL IRON BINDING CAPACITY 170 ug/dL (250-450)
--- NOTE | 2017-11-07 14:40 | Cardiology Report ---
APPROVED REPORT EKG Measurement Heart [id number] VA [id number] [id number] Normal sinus rhythm Anteroseptal infarct, age undetermined Abnormal ECG
[2017-11-07 14:50] LABS: FERRITIN 893 NG/ML (8-388)
[2017-11-07 16:00] VITALS: BP 109/68
[2017-11-07] MEDS ORDERED: Furosemide 80mg tab ORAL ONE (16:00)
[2017-11-07] MEDS: Lidocaine 1% MPF 10mg/ml 5ml IM SCH (17:51)
[2017-11-07] MEDS: Dyna-Hex 2% Top Sol 2oz TOPIC SCH (19:40)
[2017-11-07 20:00] VITALS: BP 127/65
[2017-11-08] VITALS: BP 125/64
[2017-11-08] MEDS ORDERED: Heparin Sod 1000 units/ml 10ml IV PRN
[2017-11-08] MEDS ORDERED: Heparin 2000 units/Ns 1000ml IV ONE
[2017-11-08] MEDS: Albuterol/Ipratropium 3ml neb HHN SCH ×5 (02:24→20:42)
[2017-11-08 04:00] VITALS: BP 127/65
[2017-11-08] MEDS: NovoLOG Insulin Flexpen SUBQ SCH ×4 (06:30→21:00)
[2017-11-08 08:00] VITALS: BP 92/55
[2017-11-08] MEDS: Docusate 100mg cap ORAL SCH (08:17)
[2017-11-08] MEDS: Anastrazole 1mg tab ORAL SCH (08:17)
[2017-11-08] MEDS: Vitamin D 1000 IU Tab ORAL SCH (08:19)
[2017-11-08] MEDS: Aspirin EC 81mg tab ORAL SCH (08:19)
[2017-11-08] MEDS: Furosemide 40mg tab ORAL SCH ×2 (08:19→17:19)
[2017-11-08] MEDS: Carvedilol 25mg Tab ORAL SCH ×2 (08:20→21:25)
[2017-11-08] MEDS: Heparin 5000 units/ml inj SUBQ SCH ×2 (08:20→21:00)
[2017-11-08] MEDS: Milk of Magnesia 30ml Ud ORAL SCH (08:20)
[2017-11-08] MEDS ORDERED: Cathflo Alteplase 2mg Inj INJ ONE (09:00)
[2017-11-08 12:00] VITALS: BP 117/65
--- NOTE | 2017-11-08 14:10 | General Progress Note ---
Assessment/Plan Problem List: (1) Pleural effusion ICD Codes: J90 - Pleural effusion, not elsewhere classified SNOMED: 45562162 (2) Renal failure ICD Codes: N19 - Unspecified kidney failure SNOMED: 01636447 Assessment/Plan cont resp care bipap prn wean venti mask check abg HD per renal cough rx Not ready for dc. try to wean venti mask Subjective ROS Limited/Unobtainable: No Constitutional: Reports: malaise, weakness HEENT: Reports: no symptoms Cardiovascular: Reports: no symptoms Respiratory: Reports: cough, shortness of breath Gastrointestinal/Abdominal: Reports: no symptoms Genitourinary: Reports: no symptoms Neurologic/Psychiatric: Reports: no symptoms Endocrine: Reports: no symptoms Hematologic/Lymphatic: Reports: anemia Allergies: Coded Allergies: SHELLFISH DERIVED (Unverified Allergy, Intermediate, 11/06/17) COPIED FROM UNCODED SECTION All Systems: reviewed and negative except above Subjective s/p hd. s/p 700cc thoracentesis. c/o cough, sob improved but still on venti mask. Objective Last 24 Hour Vital Signs Date Time Temp Pulse Resp B/P (MAP) Pulse Ox O2 Delivery O2 Flow Rate FiO2 11/08/17 10:29 78 18 100 Venturi Mask 10.0 45 11/08/17 10:27 78 20 100 Venturi Mask 10.0 45 11/08/17 10:25 76 18 100 Venturi Mask 6.0 35 11/08/17 10:19 76 18 99 Venturi Mask 6.0 35 11/08/17 08:20 98 Venturi Mask 6.0 35 11/08/17 08:20 86 125/64 11/08/17 08:18 86 20 98 Venturi Mask 6.0 35 11/08/17 08:17 86 20 98 Venturi Mask 6.0 35 11/08/17 08:16 Venturi Mask 6.0 35 11/08/17 08:00 92 11/08/17 08:00 97.5 73 18 92/55 100 Venturi Mask 40 11/08/17 04:00 80 11/08/17 02:34 72 20 100 Venturi Mask 6.0 40 11/08/17 02:24 79 18 99 Venturi Mask 6.0 35 11/08/17 00:00 91 11/08/17 00:00 98.1 74 24 125/64 98 Venturi Mask 11/07/17 23:50 79 20 100 Venturi Mask 6.0 40 11/07/17 23:40 82 18 97 Nasal Cannula 2.0 28 11/07/17 23:00 75 33 97 Facial 40 11/07/17 22:01 40 11/07/17 20:21 86 127/65 11/07/17 20:00 98.4 86 18 127/65 91 Nasal Cannula 2.0 11/07/17 20:00 84 11/07/17 19:49 85 20 100 Nasal Cannula 2.0 28 11/07/17 19:29 87 18 97 Nasal Cannula 2.0 28 11/07/17 19:28 97 Nasal Cannula 2.0 28 11/07/17 19:28 Nasal Cannula 2.0 28 11/07/17 16:00 95 11/07/17 16:00 98.2 85 18 109/68 91 Nasal Cannula 2.0 11/07/17 15:13 80 20 96 Nasal Cannula 2.0 28 11/07/17 15:03 83 20 92 Nasal Cannula 2.0 28 Laboratory Tests 11/08/17 04:40: Random Vancomycin Level < 2.0 Height (Feet): 5 Height (Inches): 10.00 Weight (Pounds): 206 Objective General Appearance: WD/WN, alert Neck: supple Cardiovascular: normal rate, regular rhythm Respiratory/Chest: chest wall non-tender, lungs clear, normal breath sounds Abdomen: normal bowel sounds, non tender, soft, no organomegaly Edema: mild edema 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
--- NOTE | 2017-11-08 15:32 | General Progress Note ---
Assessment/Plan Assessment/Plan Had HD now. Instilled tPA and after that a normal run. Subjective Allergies: Coded Allergies: SHELLFISH DERIVED (Unverified Allergy, Intermediate, 11/06/17) COPIED FROM UNCODED SECTION Subjective No new c/o. Objective Last 24 Hour Vital Signs Date Time Temp Pulse Resp B/P (MAP) Pulse Ox O2 Delivery O2 Flow Rate FiO2 11/08/17 15:13 79 20 100 Venturi Mask 6.0 35 11/08/17 15:04 94 20 98 Venturi Mask 6.0 35 11/08/17 12:00 97.5 82 18 117/65 99 Venturi Mask 40 11/08/17 10:29 78 18 100 Venturi Mask 10.0 45 11/08/17 10:27 78 20 100 Venturi Mask 10.0 45 11/08/17 10:25 76 18 100 Venturi Mask 6.0 35 11/08/17 10:19 76 18 99 Venturi Mask 6.0 35 11/08/17 08:20 98 Venturi Mask 6.0 35 11/08/17 08:20 86 125/64 11/08/17 08:18 86 20 98 Venturi Mask 6.0 35 11/08/17 08:17 86 20 98 Venturi Mask 6.0 35 11/08/17 08:16 Venturi Mask 6.0 35 11/08/17 08:00 92 11/08/17 08:00 97.5 73 18 92/55 100 Venturi Mask 40 11/08/17 04:00 80 11/08/17 02:34 72 20 100 Venturi Mask 6.0 40 11/08/17 02:24 79 18 99 Venturi Mask 6.0 35 11/08/17 00:00 91 11/08/17 00:00 98.1 74 24 125/64 98 Venturi Mask 11/07/17 23:50 79 20 100 Venturi Mask 6.0 40 11/07/17 23:40 82 18 97 Nasal Cannula 2.0 28 11/07/17 23:00 75 33 97 Facial 40 11/07/17 22:01 40 11/07/17 20:21 86 127/65 11/07/17 20:00 98.4 86 18 127/65 91 Nasal Cannula 2.0 11/07/17 20:00 84 11/07/17 19:49 85 20 100 Nasal Cannula 2.0 11/07/17 19:29 87 18 97 Nasal Cannula 2.0 28 11/07/17 19:28 97 Nasal Cannula 2.0 11/07/17 19:28 Nasal Cannula 2.0 11/07/17 16:00 95 11/07/17 16:00 98.2 85 18 109/68 91 Nasal Cannula 2.0 Laboratory Tests 11/08/17 04:40: Random Vancomycin Level < 2.0 Height (Feet): 5 Height (Inches): 10.00 Weight (Pounds): 206 Objective CV RR Lungs CTA Abd SNT . BS + E No CCE EZEQUIEL DOE Nov 08, 2017 15:32
[2017-11-08 16:00] VITALS: BP 129/52
[2017-11-08] MEDS: Lidocaine 1% MPF 10mg/ml 5ml IM SCH (17:19)
[2017-11-08 20:00] VITALS: BP 107/74
[2017-11-08] MEDS ORDERED: Epogen (for ESRD on dialysis) SUBQ SCH (21:00)
[2017-11-08] MEDS: Dyna-Hex 2% Top Sol 2oz TOPIC SCH (21:20)
[2017-11-08] MEDS: Epogen (for ESRD on dialysis) SUBQ SCH (21:30)
[2017-11-09] VITALS: BP 127/67
[2017-11-09] MEDS: Albuterol/Ipratropium 3ml neb HHN SCH ×7 (01:12→23:22)
[2017-11-09 04:00] VITALS: BP 108/72
[2017-11-09] MEDS: NovoLOG Insulin Flexpen SUBQ SCH ×4 (06:30→21:00)
[2017-11-09 08:00] VITALS: BP 123/71
--- NOTE | 2017-11-09 08:12 | General Progress Note ---
Assessment/Plan Problem List: (1) Pleural effusion ICD Codes: J90 - Pleural effusion, not elsewhere classified SNOMED: 28092959 (2) Renal failure ICD Codes: N19 - Unspecified kidney failure SNOMED: 28197314 Status: stable, progressing Assessment/Plan cont resp care bipap prn wean venti mask check abg HD per renal cough rx ct chest- r/o pe Not ready for dc. try to wean venti mask Subjective ROS Limited/Unobtainable: No Constitutional: Reports: malaise, weakness HEENT: Reports: no symptoms Cardiovascular: Reports: no symptoms Respiratory: Reports: shortness of breath Gastrointestinal/Abdominal: Reports: no symptoms Genitourinary: Reports: no symptoms Neurologic/Psychiatric: Reports: no symptoms Endocrine: Reports: no symptoms Hematologic/Lymphatic: Reports: no symptoms Allergies: Coded Allergies: SHELLFISH DERIVED (Unverified Allergy, Intermediate, 11/06/17) COPIED FROM UNCODED SECTION All Systems: reviewed and negative except above Subjective remains sob. cannot wean venti mask. no chest pain . Objective Last 24 Hour Vital Signs Date Time Temp Pulse Resp B/P (MAP) Pulse Ox O2 Delivery O2 Flow Rate FiO2 11/09/17 07:19 100 20 99 Venturi Mask 4.0 30 11/09/17 07:19 30 11/09/17 07:04 94 Venturi Mask 4.0 35 11/09/17 07:03 93 20 94 Venturi Mask 4.0 35 11/09/17 07:03 Venturi Mask 4.0 35 11/09/17 05:16 35 11/09/17 05:15 88 24 99 Venturi Mask 4.0 35 11/09/17 04:00 91 11/09/17 04:00 98.7 79 32 108/72 100 Venturi Mask 11/09/17 01:36 100 24 99 Venturi Mask 4.0 35 11/09/17 01:14 86 24 100 Venturi Mask 4.0 35 11/09/17 01:14 35 11/09/17 01:11 86 24 100 Venturi Mask 4.0 35 11/09/17 00:00 98.9 92 24 127/67 97 Venturi Mask 11/08/17 23:55 81 11/08/17 21:25 85 118/72 11/08/17 21:01 89 22 99 Venturi Mask 4.0 35 11/08/17 20:48 35 11/08/17 20:46 84 22 99 Venturi Mask 4.0 35 11/08/17 20:44 Venturi Mask 4.0 35 11/08/17 20:42 99 Venturi Mask 4.0 35 11/08/17 20:00 97 11/08/17 20:00 98.4 100 32 107/74 98 Mechanical Ventilator 11/08/17 16:00 97.7 94 22 129/52 98 Venturi Mask 11/08/17 16:00 93 11/08/17 15:38 Venturi Mask 4.0 11/08/17 15:27 Room Air 4.0 11/08/17 15:13 79 20 100 Venturi Mask 6.0 35 11/08/17 15:04 94 20 98 Venturi Mask 6.0 35 11/08/17 12:00 85 11/08/17 12:00 97.5 82 18 117/65 99 Venturi Mask 40 11/08/17 10:29 78 18 100 Venturi Mask 10.0 45 11/08/17 10:27 78 20 100 Venturi Mask 10.0 45 11/08/17 10:25 76 18 100 Venturi Mask 6.0 35 11/08/17 10:19 76 18 99 Venturi Mask 6.0 35 11/08/17 08:20 98 Venturi Mask 6.0 35 11/08/17 08:20 86 125/64 11/08/17 08:18 86 20 98 Venturi Mask 6.0 35 11/08/17 08:17 86 20 98 Venturi Mask 6.0 35 11/08/17 08:16 Venturi Mask 6.0 35 Height (Feet): 5 Height (Inches): 10.00 Weight (Pounds): 204 Objective General Appearance: WD/WN, alert Neck: supple Cardiovascular: normal rate, regular rhythm Respiratory/Chest: chest wall non-tender, lungs clear, normal breath sounds Abdomen: normal bowel sounds, non tender, soft, no organomegaly Edema: mild edema 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
[2017-11-09] MEDS: Milk of Magnesia 30ml Ud ORAL SCH (09:00)
[2017-11-09] MEDS: Docusate 100mg cap ORAL SCH (09:06)
[2017-11-09] MEDS: Anastrazole 1mg tab ORAL SCH (09:06)
[2017-11-09] MEDS: Vitamin D 1000 IU Tab ORAL SCH (09:06)
[2017-11-09] MEDS: Carvedilol 25mg Tab ORAL SCH ×2 (09:07→20:57)
[2017-11-09] MEDS: Aspirin EC 81mg tab ORAL SCH (09:07)
[2017-11-09] MEDS: Furosemide 40mg tab ORAL SCH ×2 (09:07→18:10)
[2017-11-09] MEDS: Heparin 5000 units/ml inj SUBQ SCH ×2 (09:09→21:00)
--- NOTE | 2017-11-09 10:50 | Nephrology Progress Note ---
Assessment/Plan Plan ESRD -for HD tomorrow Subjective Subjective No new c/o Objective Objective Last 24 Hour Vital Signs Date Time Temp Pulse Resp B/P (MAP) Pulse Ox O2 Delivery O2 Flow Rate FiO2 11/09/17 10:47 86 20 94 Venturi Mask 4.0 35 11/09/17 09:51 95 18 100 Venturi Mask 4.0 30 11/09/17 09:50 95 20 100 Venturi Mask 4.0 30 11/09/17 09:07 96 123/71 11/09/17 08:00 98.2 96 20 123/71 97 Venturi Mask 40 11/09/17 07:19 100 20 99 Venturi Mask 4.0 30 11/09/17 07:19 30 11/09/17 07:04 94 Venturi Mask 4.0 35 11/09/17 07:03 93 20 94 Venturi Mask 4.0 35 11/09/17 07:03 Venturi Mask 4.0 35 11/09/17 05:16 35 11/09/17 05:15 88 24 99 Venturi Mask 4.0 35 11/09/17 04:00 91 11/09/17 04:00 98.7 79 32 108/72 100 Venturi Mask 11/09/17 01:36 100 24 99 Venturi Mask 4.0 35 11/09/17 01:14 86 24 100 Venturi Mask 4.0 35 11/09/17 01:14 35 11/09/17 01:11 86 24 100 Venturi Mask 4.0 35 11/09/17 00:00 98.9 92 24 127/67 97 Venturi Mask 11/08/17 23:55 81 11/08/17 21:25 85 118/72 11/08/17 21:01 89 22 99 Venturi Mask 4.0 35 11/08/17 20:48 35 11/08/17 20:46 84 22 99 Venturi Mask 4.0 35 11/08/17 20:44 Venturi Mask 4.0 35 11/08/17 20:42 99 Venturi Mask 4.0 35 11/08/17 20:00 97 11/08/17 20:00 98.4 100 32 107/74 98 Mechanical Ventilator 11/08/17 16:00 97.7 94 22 129/52 98 Venturi Mask 11/08/17 16:00 93 11/08/17 15:38 Venturi Mask 4.0 11/08/17 15:27 Room Air 4.0 11/08/17 15:13 79 20 100 Venturi Mask 6.0 35 11/08/17 15:04 94 20 98 Venturi Mask 6.0 35 11/08/17 12:00 85 11/08/17 12:00 97.5 82 18 117/65 99 Venturi Mask 40 Height (Feet): 5 Height (Inches): 10.00 Weight (Pounds): 204 Objective Cv RR Lungs CTa Abd SNT. BS + E No CCE EZEQUIEL DOE Nov 09, 2017 10:50
[2017-11-09] MEDS ORDERED: Heparin Sod 1000 units/ml 10ml IV PRN (11:00)
[2017-11-09 12:00] VITALS: BP 122/74
[2017-11-09 16:00] VITALS: BP 104/65
[2017-11-09] MEDS: Lidocaine 1% MPF 10mg/ml 5ml IM SCH (18:11)
[2017-11-09] MEDS: Dyna-Hex 2% Top Sol 2oz TOPIC SCH (20:56)
[2017-11-09 20:58] VITALS: BP 111/68
[2017-11-10 00:53] VITALS: BP 118/51
[2017-11-10] MEDS: Albuterol/Ipratropium 3ml neb HHN SCH ×5 (02:23→22:59)
[2017-11-10] MEDS: NovoLOG Insulin Flexpen SUBQ SCH ×4 (06:30→21:04)
[2017-11-10 07:02] VITALS: BP 103/55
[2017-11-10 08:00] VITALS: BP 111/56
--- NOTE | 2017-11-10 08:41 | General Progress Note ---
Assessment/Plan Problem List: (1) Pleural effusion ICD Codes: J90 - Pleural effusion, not elsewhere classified SNOMED: 50413798 (2) Renal failure ICD Codes: N19 - Unspecified kidney failure SNOMED: 75365267 Status: stable, not improved Assessment/Plan cont resp care bipap prn wean venti mask check abg HD per renal cough rx cxr Not ready for dc. try to wean venti mask Subjective ROS Limited/Unobtainable: No Constitutional: Reports: malaise, weakness HEENT: Reports: no symptoms Respiratory: Reports: shortness of breath Gastrointestinal/Abdominal: Reports: no symptoms Genitourinary: Reports: no symptoms Neurologic/Psychiatric: Reports: no symptoms Endocrine: Reports: no symptoms Hematologic/Lymphatic: Reports: anemia Allergies: Coded Allergies: SHELLFISH DERIVED (Unverified Allergy, Intermediate, 11/06/17) COPIED FROM UNCODED SECTION All Systems: reviewed and negative except above Subjective remains sob. cannot wean venti mask. briefly on bipap last night. due for hd today . Objective Last 24 Hour Vital Signs Date Time Temp Pulse Resp B/P (MAP) Pulse Ox O2 Delivery O2 Flow Rate FiO2 11/10/17 07:25 75 18 100 Venturi Mask 4.0 30 11/10/17 07:15 100 Venturi Mask 4.0 30 11/10/17 07:15 78 16 100 Venturi Mask 4.0 30 11/10/17 07:15 30 11/10/17 07:15 Venturi Mask 4.0 30 11/10/17 07:02 97.9 72 20 103/55 96 Venturi Mask 11/10/17 05:23 78 21 98 Facial 40 11/10/17 05:04 86 24 Bi-pap 40 11/10/17 04:00 89 11/10/17 03:29 89 18 96 Facial 40 11/10/17 02:37 79 20 100 Venturi Mask 4.0 30 11/10/17 02:30 35 11/10/17 02:30 80 18 98 Venturi Mask 4.0 30 11/10/17 00:53 99.0 81 24 118/51 100 Venturi Mask 11/09/17 23:23 87 20 100 Venturi Mask 4.0 30 11/09/17 23:10 74 20 99 Venturi Mask 4.0 30 11/09/17 23:10 35 11/09/17 20:58 97.6 98 20 111/68 97 Venturi Mask 11/09/17 20:57 89 123/72 11/09/17 20:00 94 11/09/17 19:28 82 18 100 Venturi Mask 4.0 30 11/09/17 19:20 81 20 98 Venturi Mask 4.0 30 11/09/17 19:20 35 11/09/17 19:04 99 Venturi Mask 4.0 30 11/09/17 19:04 Venturi Mask 4.0 30 11/09/17 16:00 78 11/09/17 16:00 97.7 97 18 104/65 100 Venturi Mask 40 11/09/17 14:45 87 16 100 Venturi Mask 4.0 30 11/09/17 14:44 30 11/09/17 14:33 86 20 96 Venturi Mask 4.0 35 11/09/17 12:00 97.7 83 20 122/74 96 Venturi Mask 40 11/09/17 12:00 94 11/09/17 10:58 97 20 100 Venturi Mask 4.0 30 11/09/17 10:57 30 11/09/17 10:47 86 20 94 Venturi Mask 4.0 35 11/09/17 09:51 95 18 100 Venturi Mask 4.0 30 11/09/17 09:50 95 20 100 Venturi Mask 4.0 30 11/09/17 09:07 96 123/71 Height (Feet): 5 Height (Inches): 10.00 Weight (Pounds): 203 Objective General Appearance: WD/WN, alert Neck: supple Cardiovascular: normal rate, regular rhythm Respiratory/Chest: chest wall non-tender, lungs clear, normal breath sounds Abdomen: normal bowel sounds, non tender, soft, no organomegaly Edema: mild edema 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
--- NOTE | 2017-11-10 08:52 | Nephrology Progress Note ---
Assessment/Plan Plan ESRD -for HD today. COPD on BIPAP Subjective Subjective Still SOB Objective Objective Last 24 Hour Vital Signs Date Time Temp Pulse Resp B/P (MAP) Pulse Ox O2 Delivery O2 Flow Rate FiO2 11/10/17 07:25 75 18 100 Venturi Mask 4.0 30 11/10/17 07:15 100 Venturi Mask 4.0 30 11/10/17 07:15 78 16 100 Venturi Mask 4.0 30 11/10/17 07:15 30 11/10/17 07:15 Venturi Mask 4.0 30 11/10/17 07:02 97.9 72 20 103/55 96 Venturi Mask 11/10/17 05:23 78 21 98 Facial 40 11/10/17 05:04 86 24 Bi-pap 40 11/10/17 04:00 89 11/10/17 03:29 89 18 96 Facial 40 11/10/17 02:37 79 20 100 Venturi Mask 4.0 30 11/10/17 02:30 35 11/10/17 02:30 80 18 98 Venturi Mask 4.0 30 11/10/17 00:53 99.0 81 24 118/51 100 Venturi Mask 11/09/17 23:23 87 20 100 Venturi Mask 4.0 30 11/09/17 23:10 74 20 99 Venturi Mask 4.0 30 11/09/17 23:10 35 11/09/17 20:58 97.6 98 20 111/68 97 Venturi Mask 11/09/17 20:57 89 123/72 11/09/17 20:00 94 11/09/17 19:28 82 18 100 Venturi Mask 4.0 30 11/09/17 19:20 81 20 98 Venturi Mask 4.0 30 11/09/17 19:20 35 11/09/17 19:04 99 Venturi Mask 4.0 30 11/09/17 19:04 Venturi Mask 4.0 30 11/09/17 16:00 78 11/09/17 16:00 97.7 97 18 104/65 100 Venturi Mask 40 11/09/17 14:45 87 16 100 Venturi Mask 4.0 30 11/09/17 14:44 30 11/09/17 14:33 86 20 96 Venturi Mask 4.0 35 11/09/17 12:00 97.7 83 20 122/74 96 Venturi Mask 40 11/09/17 12:00 94 11/09/17 10:58 97 20 100 Venturi Mask 4.0 30 11/09/17 10:57 30 11/09/17 10:47 86 20 94 Venturi Mask 4.0 35 11/09/17 09:51 95 18 100 Venturi Mask 4.0 30 11/09/17 09:50 95 20 100 Venturi Mask 4.0 30 11/09/17 09:07 96 123/71 Height (Feet): 5 Height (Inches): 10.00 Weight (Pounds): 203 Objective Cv RR Lungs CTa Abd SNT. BS + E No CCE EZEQUIEL DOE Nov 10, 2017 08:52
[2017-11-10] MEDS: Carvedilol 25mg Tab ORAL SCH ×2 (09:00→21:00)
[2017-11-10] MEDS: Aspirin EC 81mg tab ORAL SCH (09:01)
[2017-11-10] MEDS: Anastrazole 1mg tab ORAL SCH (09:01)
[2017-11-10] MEDS: Vitamin D 1000 IU Tab ORAL SCH (09:01)
[2017-11-10] MEDS: Docusate 100mg cap ORAL SCH (09:01)
[2017-11-10] MEDS: Furosemide 40mg tab ORAL SCH ×2 (09:02→18:16)
[2017-11-10] MEDS: Heparin 5000 units/ml inj SUBQ SCH ×2 (09:03→21:00)
[2017-11-10] MEDS: Milk of Magnesia 30ml Ud ORAL SCH (09:03)
[2017-11-10 12:00] VITALS: BP 127/31
[2017-11-10 16:00] VITALS: BP 105/67
--- NOTE | 2017-11-10 16:48 | Diagnostic Imaging Report ---
. Indication: Reason For Exam: SOB Technique: One view of the chest Comparison: 11/05/2017 Findings: What is presumably an epicardial cardiac defibrillator is again demonstrated. A tunneled dialysis catheter again demonstrated. Bilateral diffuse and airspace congestive opacities, left-sided pleural effusion, probable smaller right-sided pleural effusion are again demonstrated. The airspace opacities may be slightly worse at the right lung base Impression: Bilateral pleural and parenchymal disease, likely stable over 5 days but perhaps slightly worse at the right lung base
[2017-11-10] MEDS: Lidocaine 1% MPF 10mg/ml 5ml IM SCH (18:17)
[2017-11-10 20:00] VITALS: BP 102/59
[2017-11-10] MEDS: Dyna-Hex 2% Top Sol 2oz TOPIC SCH (20:59)
[2017-11-10] MEDS: Epogen (for ESRD on dialysis) SUBQ SCH (21:27)
[2017-11-11] VITALS: BP 120/55
[2017-11-11] MEDS: Albuterol/Ipratropium 3ml neb HHN SCH ×6 (02:06→22:56)
[2017-11-11 04:00] VITALS: BP 102/67
[2017-11-11] MEDS: NovoLOG Insulin Flexpen SUBQ SCH ×4 (05:21→20:24)
[2017-11-11 08:00] VITALS: BP 100/74
[2017-11-11] MEDS: Milk of Magnesia 30ml Ud ORAL SCH (09:00)
[2017-11-11] MEDS: Heparin 5000 units/ml inj SUBQ SCH ×2 (09:00→20:28)
[2017-11-11] MEDS: Furosemide 40mg tab ORAL SCH ×2 (09:00→18:11)
[2017-11-11] MEDS: Aspirin EC 81mg tab ORAL SCH (09:07)
[2017-11-11] MEDS: Anastrazole 1mg tab ORAL SCH (09:08)
[2017-11-11] MEDS: Docusate 100mg cap ORAL SCH (09:09)
[2017-11-11] MEDS: Carvedilol 25mg Tab ORAL SCH ×2 (09:10→20:25)
--- NOTE | 2017-11-11 11:27 | General Progress Note ---
Assessment/Plan Problem List: (1) Pleural effusion ICD Codes: J90 - Pleural effusion, not elsewhere classified SNOMED: 80650054 (2) Renal failure ICD Codes: N19 - Unspecified kidney failure SNOMED: 30715310 Assessment/Plan cont resp care bipap prn wean venti mask HD per renal cough rx check sputum culture ID eval Not ready for dc. try to wean venti mask Subjective ROS Limited/Unobtainable: No Constitutional: Reports: malaise, weakness HEENT: Reports: no symptoms Cardiovascular: Reports: no symptoms Respiratory: Reports: cough, shortness of breath Gastrointestinal/Abdominal: Reports: no symptoms Genitourinary: Reports: no symptoms Neurologic/Psychiatric: Reports: no symptoms Endocrine: Reports: no symptoms Hematologic/Lymphatic: Reports: anemia Allergies: Coded Allergies: SHELLFISH DERIVED (Unverified Allergy, Intermediate, 11/06/17) COPIED FROM UNCODED SECTION All Systems: reviewed and negative except above Subjective remains sob. cannot wean venti mask. briefly on bipap last night. cxr with increased infiltrates . Objective Last 24 Hour Vital Signs Date Time Temp Pulse Resp B/P (MAP) Pulse Ox O2 Delivery O2 Flow Rate FiO2 11/11/17 09:10 83 100/74 11/11/17 08:51 83 18 100 Venturi Mask 4.0 30 11/11/17 08:50 83 18 100 Venturi Mask 4.0 30 11/11/17 08:00 79 11/11/17 08:00 98.0 81 20 100/74 98 Venturi Mask 40 11/11/17 07:08 95 16 100 Venturi Mask 4.0 30 11/11/17 06:58 Venturi Mask 4.0 30 11/11/17 06:58 100 Venturi Mask 4.0 30 11/11/17 06:58 30 11/11/17 06:58 100 18 100 Venturi Mask 4.0 30 11/11/17 04:00 78 11/11/17 04:00 98.8 75 24 102/67 100 Venturi Mask 40 11/11/17 02:15 88 16 99 Venturi Mask 4.0 30 11/11/17 02:05 30 11/11/17 02:04 92 20 98 Venturi Mask 4.0 30 11/11/17 00:00 79 11/11/17 00:00 98.1 88 32 120/55 98 Venturi Mask 40 11/10/17 23:09 80 18 99 Venturi Mask 4.0 30 11/10/17 22:59 81 18 97 Venturi Mask 4.0 30 11/10/17 22:59 30 11/10/17 21:00 89 105/67 11/10/17 20:00 91 11/10/17 20:00 98.2 90 20 102/59 99 Venturi Mask 11/10/17 18:54 89 20 99 Venturi Mask 4.0 30 11/10/17 18:44 90 20 94 Venturi Mask 4.0 30 11/10/17 18:44 94 Venturi Mask 4.0 30 11/10/17 18:44 30 11/10/17 18:44 Venturi Mask 4.0 30 11/10/17 16:00 87 11/10/17 16:00 98.6 80 20 105/67 97 Venturi Mask 40 11/10/17 14:48 82 18 100 Venturi Mask 4.0 30 11/10/17 14:40 30 11/10/17 14:40 91 18 100 Venturi Mask 4.0 30 11/10/17 13:32 Room Air 11/10/17 12:00 84 11/10/17 12:00 97.7 91 20 127/31 93 Venturi Mask 40 Intake and Output 11/10/17 11/11/17 19:00 07:00 Intake Total 450 ml 200 ml Output Total 2500 ml 350 ml Balance -2050 ml -150 ml Intake Oral 450 ml 200 ml Output Urine Total 350 ml Hemodialysis UF 2500 ml # Bowel Movements 2 Height (Feet): 5 Height (Inches): 10.00 Weight (Pounds): 203 Objective General Appearance: WD/WN, alert Neck: supple Cardiovascular: normal rate, regular rhythm Respiratory/Chest: chest wall non-tender, lungs clear, normal breath sounds Abdomen: normal bowel sounds, non tender, soft, no organomegaly Edema: mild edema 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
[2017-11-11 12:00] VITALS: BP 116/64
[2017-11-11] MEDS: Vitamin D 1000 IU Tab ORAL SCH (12:53)
--- NOTE | 2017-11-11 15:26 | Nephrology Progress Note ---
Assessment/Plan Plan ESRD -for HD tomorrow. COPD on BIPAP Subjective Subjective Still SOB Objective Objective Last 24 Hour Vital Signs Date Time Temp Pulse Resp B/P (MAP) Pulse Ox O2 Delivery O2 Flow Rate FiO2 11/11/17 12:00 78 11/11/17 12:00 98.0 76 20 116/64 100 Venturi Mask 40 11/11/17 11:30 81 16 100 Venturi Mask 4.0 30 11/11/17 11:20 30 11/11/17 11:20 90 18 100 Venturi Mask 4.0 30 11/11/17 09:10 83 100/74 11/11/17 08:51 83 18 100 Venturi Mask 4.0 30 11/11/17 08:50 83 18 100 Venturi Mask 4.0 30 11/11/17 08:00 79 11/11/17 08:00 98.0 81 20 100/74 98 Venturi Mask 40 11/11/17 07:08 95 16 100 Venturi Mask 4.0 30 11/11/17 06:58 Venturi Mask 4.0 30 11/11/17 06:58 100 Venturi Mask 4.0 30 11/11/17 06:58 30 11/11/17 06:58 100 18 100 Venturi Mask 4.0 30 11/11/17 04:00 78 11/11/17 04:00 98.8 75 24 102/67 100 Venturi Mask 40 11/11/17 02:15 88 16 99 Venturi Mask 4.0 30 11/11/17 02:05 30 11/11/17 02:04 92 20 98 Venturi Mask 4.0 30 11/11/17 00:00 79 11/11/17 00:00 98.1 88 32 120/55 98 Venturi Mask 40 11/10/17 23:09 80 18 99 Venturi Mask 4.0 30 11/10/17 22:59 81 18 97 Venturi Mask 4.0 30 11/10/17 22:59 30 11/10/17 21:00 89 105/67 11/10/17 20:00 91 11/10/17 20:00 98.2 90 20 102/59 99 Venturi Mask 11/10/17 18:54 89 20 99 Venturi Mask 4.0 30 11/10/17 18:44 90 20 94 Venturi Mask 4.0 30 11/10/17 18:44 94 Venturi Mask 4.0 30 11/10/17 18:44 30 11/10/17 18:44 Venturi Mask 4.0 30 11/10/17 16:00 87 11/10/17 16:00 98.6 80 20 105/67 97 Venturi Mask 40 Intake and Output 11/10/17 11/11/17 19:00 07:00 Intake Total 450 ml 200 ml Output Total 2500 ml 350 ml Balance -2050 ml -150 ml Intake Oral 450 ml 200 ml Output Urine Total 350 ml Hemodialysis UF 2500 ml # Bowel Movements 2 Laboratory Tests 11/11/17 12:35: Troponin I 0.049 Height (Feet): 5 Height (Inches): 10.00 Weight (Pounds): 203 Objective Cv RR Lungs CTa Abd SNT. BS + E No CCE EZEQUIEL DOE Nov 11, 2017 15:26
[2017-11-11] MEDS ORDERED: Heparin Sod 1000 units/ml 10ml IV PRN ×2 (15:45→16:00)
[2017-11-11 16:00] VITALS: BP 115/70
[2017-11-11] MEDS: Lidocaine 1% MPF 10mg/ml 5ml IM SCH (18:11)
[2017-11-11 20:00] VITALS: BP 94/60
[2017-11-11] MEDS: Dyna-Hex 2% Top Sol 2oz TOPIC SCH (20:23)
--- NOTE | 2017-11-11 22:15 | Consultation ---
DATE OF CONSULTATION: 11/11/2017 INFECTIOUS DISEASES CONSULTATION CONSULTING PHYSICIAN: Benjy Castro M.D. This consultation is for coverage of Dr. Puga. PRIMARY ATTENDING PHYSICIAN: Negrito Suarez M.D. REASON FOR CONSULT: Pneumonia and COPD. HISTORY OF PRESENT ILLNESS: The patient is a 66-year-old female, admitted on 11/05/2017 because of shortness of breath and coughing that started 3 days before admission. The patient had symptoms of upper respiratory infection. One week before admission, she was on antibiotic at home. The patient has a history of asthma and COPD, taking oxygen at home. No fever and leukocytosis. It was found that the patient had a large pleural effusion. The patient had a thoracentesis and 700 mL of fluid was removed. PAST MEDICAL HISTORY: Significant for end-stage renal disease, on hemodialysis since last year, COPD, asthma, diabetes type 2, and hypertension. She has a history of lymphatic cancer and says that it was discovered in the right axillary region. The patient received chemotherapy but because of the heart problem, they stopped chemotherapy, and the patient says that the tumor came back. She has chronic edema of right upper extremity. ALLERGIES: To shellfish. MEDICATIONS: Getting aspirin, Plavix, heparin, albuterol and ipratropium inhalers, Lasix, Symbicort, Epogen, ceftriaxone, doxycycline, insulin, anastrozole, carvedilol, folic acid, Tylenol, and bisacodyl. SOCIAL HISTORY: Denies alcohol, drug abuse, or smoking. Lives in a halfway. REVIEW OF SYSTEMS: Shortness of breath and cough that is mostly nonproductive. Denies any fever or chills. No nausea. No vomiting. No diarrhea. No problem passing urine. PHYSICAL EXAMINATION: VITAL SIGNS: Temperature 98, pulse 81, and blood pressure 100/74. GENERAL APPEARANCE: Well developed, no acute distress. HEAD AND NECK: Getting O2 by nasal cannula. HEART: Normal rate and regular. LUNGS: Decreased expansion. Has few rhonchi with deep inspiration. ABDOMEN: Soft, nontender, obese. EXTREMITIES: Has no edema in the legs, but has edema of right arm. LABORATORY AND DIAGNOSTIC DATA: Sodium 139, potassium 4.9, chloride 104, bicarbonate 26, BUN 76, and creatinine 8.2. WBC 12.9, hemoglobin 8.6, hematocrit 27.4, and platelets are 135. Hepatitis serology was negative. Chest x-ray showed bilateral parenchymal disease, likely stable. The patient had an echocardiogram that showed ejection fraction of 40%. Venous duplex was negative for DVT. IMPRESSION: Chronic obstructive pulmonary disease and pneumonia. The patient also has a large pleural effusion that was tapped. Unfortunately, no culture or cytology was done on that sample. She seems to have diabetes mellitus, end-stage renal disease, systolic congestive heart failure, hypertension, and malignancy. RECOMMENDATION: Continue current medications ceftriaxone and doxycycline. At the end of my exam, I thank Dr. Suarez for involving me in the care of this patient. Benjy Castro M.D. DR: ARTURO JOB#: [id number] CC:
[2017-11-12] VITALS: BP 94/64
[2017-11-12] MEDS: Albuterol/Ipratropium 3ml neb HHN SCH ×4 (02:40→14:43)
[2017-11-12 04:00] VITALS: BP 95/70
[2017-11-12 05:43] LABS: BASOPHILS % (AUTO) 1.5 % (0.0-2.0); EOSINOPHILS % (AUTO) 2.5 % (0.0-3.0); LYMPHOCYTES % (AUTO) 11.6 % (20.0-45.0); MEAN CORPUSCULAR HEMOGLOBIN 31.5 PG (27.0-31.0); MEAN CORPUSCULAR HGB CONC 30.7 G/DL (32.0-36.0); MEAN CORPUSCULAR VOLUME 103 FL (80-99); MEAN PLATELET VOLUME 5.3 FL (6.5-10.1); MONOCYTES % (AUTO) 15.3 % (1.0-10.0); NEUTROPHILS % (AUTO) 69.2 % (45.0-75.0); PLATELET COUNT 213 K/UL (150-450); RED BLOOD COUNT 2.62 M/UL (4.20-5.40); RED CELL DISTRIBUTION WIDTH 18.9 % (11.6-14.8); WHITE BLOOD COUNT 3.8 K/UL (4.8-10.8)
[2017-11-12 05:46] LABS: ANION GAP 13 mmol/L (5-15); CALCIUM 7.8 MG/DL (8.5-10.1); CARBON DIOXIDE 21 MMOL/L (21-32); CHLORIDE 105 MMOL/L (98-107); CREATININE 7.9 MG/DL (0.55-1.30); GLOMERULAR FILTRATION RATE 6.2 mL/min (>60); POTASSIUM 5.1 MMOL/L (3.5-5.1); SODIUM 139 MMOL/L (136-145)
[2017-11-12] MEDS: NovoLOG Insulin Flexpen SUBQ SCH ×3 (06:30→16:30)
[2017-11-12 08:00] VITALS: BP 130/63
[2017-11-12] MEDS: Milk of Magnesia 30ml Ud ORAL SCH (09:00)
[2017-11-12] MEDS: Carvedilol 25mg Tab ORAL SCH (09:35)
[2017-11-12] MEDS: Furosemide 40mg tab ORAL SCH ×2 (09:35→17:44)
[2017-11-12] MEDS: Aspirin EC 81mg tab ORAL SCH (09:35)
[2017-11-12] MEDS: Anastrazole 1mg tab ORAL SCH (09:35)
[2017-11-12] MEDS: Docusate 100mg cap ORAL SCH (09:35)
[2017-11-12] MEDS: Heparin 5000 units/ml inj SUBQ SCH (09:38)
[2017-11-12] MEDS: Vitamin D 1000 IU Tab ORAL SCH (10:07)
--- NOTE | 2017-11-12 10:48 | Nephrology Progress Note ---
Assessment/Plan Plan ESRD - had HD today COPD on BIPAP Subjective Subjective Less SOB Objective Objective Last 24 Hour Vital Signs Date Time Temp Pulse Resp B/P (MAP) Pulse Ox O2 Delivery O2 Flow Rate FiO2 11/12/17 09:35 87 130/63 11/12/17 08:54 87 18 99 Nasal Cannula 2.0 28 11/12/17 08:54 87 18 99 Nasal Cannula 2.0 28 11/12/17 08:00 97.7 87 22 130/63 90 Nasal Cannula 3.0 11/12/17 08:00 84 11/12/17 07:54 96 18 99 Nasal Cannula 2.0 28 11/12/17 07:45 64 18 97 Nasal Cannula 2.0 28 11/12/17 07:39 Nasal Cannula 3.0 32 11/12/17 07:39 97 Nasal Cannula 3.0 32 11/12/17 04:43 97.0 11/12/17 04:00 84 11/12/17 04:00 97.0 88 22 95/70 98 Nasal Cannula 3.0 11/12/17 02:47 94 18 100 Nasal Cannula 2.0 28 11/12/17 02:42 30 11/12/17 02:40 78 20 95 Nasal Cannula 2.0 30 11/12/17 01:00 Nasal Cannula 2.0 11/12/17 00:00 98.0 80 20 94/64 98 Nasal Cannula 3.0 11/12/17 00:00 88 11/11/17 23:04 91 16 100 Nasal Cannula 2.0 28 11/11/17 22:57 30 11/11/17 22:56 88 18 98 Nasal Cannula 2.0 30 11/11/17 20:25 82 94/60 11/11/17 20:00 86 11/11/17 20:00 98.2 82 20 94/60 95 Nasal Cannula 3.0 11/11/17 18:48 96 18 99 Nasal Cannula 2.0 30 11/11/17 18:48 88 16 100 Nasal Cannula 2.0 28 11/11/17 18:43 96 Nasal Cannula 2.0 28 11/11/17 18:42 30 11/11/17 18:42 Nasal Cannula 2.0 28 11/11/17 18:41 89 18 96 Venturi Mask 4.0 30 11/11/17 16:00 97.7 86 21 115/70 95 Venturi Mask 40 11/11/17 16:00 81 11/11/17 15:30 85 16 99 Venturi Mask 4.0 30 11/11/17 15:20 92 18 99 Venturi Mask 4.0 30 11/11/17 15:20 30 11/11/17 12:00 78 11/11/17 12:00 98.0 76 20 116/64 100 Venturi Mask 40 11/11/17 11:30 81 16 100 Venturi Mask 4.0 30 11/11/17 11:20 30 11/11/17 11:20 90 18 100 Venturi Mask 4.0 30 Intake and Output 11/11/17 11/12/17 19:00 07:00 Intake Total 500 ml 2150 ml Balance 500 ml 2150 ml Intake Oral 500 ml 150 ml Hemodialysis 2000 ml # Voids 4 1 # Bowel Movements 1 Laboratory Tests 11/11/17 12:35: Troponin I 0.049 11/12/17 04:00: Troponin I 0.055, White Blood Count 3.8L, Red Blood Count 2.62L, Hemoglobin 8.3L , Hematocrit 26.9L, Mean Corpuscular Volume 103H, Mean Corpuscular Hemoglobin 31.5H, Mean Corpuscular Hemoglobin Concent 30.7L, Red Cell Distribution Width 18.9H, Platelet Count 213, Mean Platelet Volume 5.3L, Neutrophils (%) (Auto) 69.2, Lymphocytes (%) (Auto) 11.6L, Monocytes (%) (Auto) 15.3H, Eosinophils (%) (Auto) 2.5, Basophils (%) (Auto) 1.5, Sodium Level 139, Potassium Level 5.1, Chloride Level 105, Carbon Dioxide Level 21, Anion Gap 13, Blood Urea Nitrogen 95H, Creatinine 7.9H, Estimat Glomerular Filtration Rate 6.2, Glucose Level 146H , Calcium Level 7.8L Height (Feet): 5 Height (Inches): 10.00 Weight (Pounds): 215 Objective Cv RR Lungs CTa Abd SNT. BS + E No CCE EZEQUIEL DOE Nov 12, 2017 10:48
[2017-11-12] MEDS ORDERED: DOXYCYCLINE HY100 M2 PO (10:56)
[2017-11-12] MEDS ORDERED: ROCEPHIN2 GM IM (10:56)
[2017-11-12 12:00] VITALS: BP 110/61
--- NOTE | 2017-11-12 12:22 | Infectious Diseases Prog Note ---
Assessment/Plan Assessment/Plan antibiotics : ceftriaxone, po doxycycline A 1. pneumonia 2. pleural effusion 3. renal failure 4. DM 5. HTN 6. COPD P 1. continue ceftriaxone, po doxycycline 2. sputum culture 3. serum legionella Ab 4. mycoplasma serology 5. will follow up cultures Subjective Constitutional: Denies: fever, chills Respiratory: Reports: shortness of breath, dry cough Gastrointestinal/Abdominal: Reports: nausea, Denies: vomiting, diarrhea Musculoskeletal: Denies: pain Allergies: Coded Allergies: SHELLFISH DERIVED (Unverified Allergy, Intermediate, 11/06/17) COPIED FROM UNCODED SECTION Objective Vital Signs Last 24 Hour Vital Signs Date Time Temp Pulse Resp B/P (MAP) Pulse Ox O2 Delivery O2 Flow Rate FiO2 11/12/17 12:00 97.9 89 20 110/61 97 Nasal Cannula 3.0 11/12/17 10:58 98 20 99 Nasal Cannula 2.0 28 11/12/17 10:50 85 20 99 Nasal Cannula 2.0 28 11/12/17 09:35 87 130/63 11/12/17 08:54 87 18 99 Nasal Cannula 2.0 28 11/12/17 08:54 87 18 99 Nasal Cannula 2.0 28 11/12/17 08:00 97.7 87 22 130/63 90 Nasal Cannula 3.0 11/12/17 08:00 84 11/12/17 07:54 96 18 99 Nasal Cannula 2.0 28 11/12/17 07:45 64 18 97 Nasal Cannula 2.0 28 11/12/17 07:39 Nasal Cannula 3.0 32 11/12/17 07:39 97 Nasal Cannula 3.0 32 11/12/17 04:43 97.0 11/12/17 04:00 84 11/12/17 04:00 97.0 88 22 95/70 98 Nasal Cannula 3.0 11/12/17 02:47 94 18 100 Nasal Cannula 2.0 28 11/12/17 02:42 30 11/12/17 02:40 78 20 95 Nasal Cannula 2.0 30 11/12/17 01:00 Nasal Cannula 2.0 11/12/17 00:00 98.0 80 20 94/64 98 Nasal Cannula 3.0 11/12/17 00:00 88 11/11/17 23:04 91 16 100 Nasal Cannula 2.0 28 11/11/17 22:57 30 11/11/17 22:56 88 18 98 Nasal Cannula 2.0 30 11/11/17 20:25 82 94/60 11/11/17 20:00 86 11/11/17 20:00 98.2 82 20 94/60 95 Nasal Cannula 3.0 11/11/17 18:48 96 18 99 Nasal Cannula 2.0 30 11/11/17 18:48 88 16 100 Nasal Cannula 2.0 28 11/11/17 18:43 96 Nasal Cannula 2.0 28 11/11/17 18:42 30 11/11/17 18:42 Nasal Cannula 2.0 28 11/11/17 18:41 89 18 96 Venturi Mask 4.0 30 11/11/17 16:00 97.7 86 21 115/70 95 Venturi Mask 40 11/11/17 16:00 81 11/11/17 15:30 85 16 99 Venturi Mask 4.0 30 11/11/17 15:20 92 18 99 Venturi Mask 4.0 30 11/11/17 15:20 30 Height (Feet): 5 Height (Inches): 10.00 Weight (Pounds): 215 Respiratory/Chest: lungs clear Cardiovascular: normal rate, regular rhythm, no gallop/murmur Abdomen: soft, non tender Extremities: no edema Laboratory Tests Test 11/11/17 12:35 11/12/17 04:00 Troponin I 0.049 ng/mL (0.000-0.056) 0.055 ng/mL (0.000-0.056) White Blood Count 3.8 K/UL (4.8-10.8) L Red Blood Count 2.62 M/UL (4.20-5.40) L Hemoglobin 8.3 G/DL (12.0-16.0) L Hematocrit 26.9 % (37.0-47.0) L Mean Corpuscular Volume 103 FL (80-99) H Mean Corpuscular Hemoglobin 31.5 PG (27.0-31.0) H Mean Corpuscular Hemoglobin Concent 30.7 G/DL (32.0-36.0) L Red Cell Distribution Width 18.9 % (11.6-14.8) H Platelet Count 213 K/UL (150-450) Mean Platelet Volume 5.3 FL (6.5-10.1) L Neutrophils (%) (Auto) 69.2 % (45.0-75.0) Lymphocytes (%) (Auto) 11.6 % (20.0-45.0) L Monocytes (%) (Auto) 15.3 % (1.0-10.0) H Eosinophils (%) (Auto) 2.5 % (0.0-3.0) Basophils (%) (Auto) 1.5 % (0.0-2.0) Sodium Level 139 MMOL/L (136-145) Potassium Level 5.1 MMOL/L (3.5-5.1) Chloride Level 105 MMOL/L (98-107) Carbon Dioxide Level 21 MMOL/L (21-32) Anion Gap 13 mmol/L (5-15) Blood Urea Nitrogen 95 mg/dL (7-18) H Creatinine 7.9 MG/DL (0.55-1.30) H Estimat Glomerular Filtration Rate 6.2 mL/min (>60) Glucose Level 146 MG/DL (74-106) H Calcium Level 7.8 MG/DL (8.5-10.1) JESSE LAURENT Nov 12, 2017 12:22
[2017-11-12 16:00] VITALS: BP 116/77
[2017-11-12] MEDS: Lidocaine 1% MPF 10mg/ml 5ml IM SCH (17:38)
[2017-11-12] MEDS: Dyna-Hex 2% Top Sol 2oz TOPIC SCH (17:49)
--- NOTE | 2017-11-12 20:47 | Discharge Summary ---
DATE OF ADMISSION: 11/05/2017 DATE OF DISCHARGE: 11/12/2017 ADMISSION DIAGNOSES: 1. Pneumonia. 2. Respiratory failure. 3. End-stage renal disease. 4. Congestive heart failure. 5. Hypertensive heart disease. 6. Pleural effusion. DISCHARGE DIAGNOSES: 1. Pneumonia. 2. Respiratory failure. 3. End-stage renal disease. 4. Congestive heart failure. 5. Hypertensive heart disease. 6. Pleural effusion. HOSPITAL COURSE: The patient is a pleasant 66-year-old female. She has a history of chronic obstructive pulmonary disease, hypertension, hypertensive heart disease, congestive heart failure, and end-stage renal disease, who was admitted with complaints of shortness of breath. She was dialyzed with some improvement, but she did require continuous BiPAP and Ventimask for sometime. She received broad-spectrum antibiotic therapy. She underwent thoracentesis for shortness of breath with improvement. On discharge, the patient was on just 3 liters nasal cannula . We were unable to obtain any intravenous access, so she was getting oral doxycycline and IM Rocephin, which she will continue for another five to seven days. DISCHARGE MEDICATIONS: Please see discharge medication list for discharge medications. DIET: Renal diet. ACTIVITIES: Ad-jason. FOLLOWUP: The patient will be followed up by her PMD at the nursing home facility. Yosvany Gooden M.D. DR: LEONID JOB#: [id number] CC:
[2017-11-16 18:15] LABS: L.PNEUMOPHILIA SERO-1 <0.91 OD ratio (0.00-0.90)
[2017-11-16 19:07] LABS: L.PNEUMOPHILIA IGM SERO-1 < 1:16 (< 1:16)
[2017-11-16 21:18] LABS: MYCOPLASMA PNEUMONIAE AB IGM <770 U/mL (0-769)
[2017-11-16 22:13] LABS: MYCOPLASMA PNEUMONIAE AB IGG 280 U/mL (0-99)
--- NOTE | 2017-11-18 00:03 | Diagnostic Imaging Report ---
APPROVED REPORT CPT Code: 02111 Present Symptoms Lower Extremity Pain: Shortness of breath Comments: R/O DVT. RIGHT LEG: Venous imaging reveals a patent deep venous system. There is no evidence of thrombus within the femoral, popliteal or tibial segments. The greater saphenous vein is also within normal limits. Doppler indicates normal spontaneous flow within these segments. LEFT LEG: Venous imaging reveals a patent deep venous system. There is no evidence of thrombus within the femoral, popliteal or tibial segments. The greater saphenous vein is also within normal limits. Doppler indicates normal spontaneous flow within these segments. 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 The left common femoral vein demonstrates turbulent, to-and-fro flow.
== END 2017-11-12 18:56 | DRG 291 ==
LOC: EDBD 03:57 → EMR 04:14 → 2W 04:43 → EDBEDREQ 05:36 → 2W 11-06 00:47
PROC: 0W9B3ZZ Drainage of Left Pleural Cavity, Percutaneous Approach (ICD-10-PCS; principal; 2017-11-05)
PROC: 5A1D70Z Performance of Urinary Filtration, Intermittent, Less than 6 Hours Per Day (ICD-10-PCS; principal; 2017-11-05)
DX: I13.2 Hypertensive heart and chronic kidney disease with heart failure and with stage 5 chronic kidney disease, or end stage renal disease (principal); N18.6 End stage renal disease; J96.91 Respiratory failure, unspecified with hypoxia; J18.9 Pneumonia, unspecified organism; J90 Pleural effusion, not elsewhere classified; E11.22 Type 2 diabetes mellitus with diabetic chronic kidney disease; I50.40 Unspecified combined systolic (congestive) and diastolic (congestive) heart failure; J44.0 Chronic obstructive pulmonary disease with (acute) lower respiratory infection; Z99.2 Dependence on renal dialysis; D63.1 Anemia in chronic kidney disease; Z85.3 Personal history of malignant neoplasm of breast; F32.9 Major depressive disorder, single episode, unspecified; I25.5 Ischemic cardiomyopathy
CPT/HCPCS: 36415; 36600; 71010; 76942; 80048; 80053; 80061; 80202; 82550; 82553; 82728; 82803; 82962; 83540; 83550; 83690; 83880; 84484; 85007; 85025; 85610; 85730; 86705; 86709; 86713; 86738; 86803; 87040; 87081; 87340; 93005; 93306; 93970; 94640; 94660; 94664; 94760; 99285; J1815; J7620